=== PATIENT | female | born 1965 | race Caucasian/White ===

== ENCOUNTER 2018-03-06 14:21 | Emergency (ER) | payer BC ==
[2018-03-06] MEDS ORDERED: NS 1,000 ML IV ONE (14:27)
[2018-03-06 14:38] LABS: PLATELET COUNT 219 10^3/uL (150-400)
[2018-03-06 14:41] VITALS: BP 133/87
[2018-03-06] MEDS ORDERED: DIAZEPAM 5 MG/ML 1 ML SYR IVP ONE (15:10)
--- NOTE | 2018-03-06 15:16 | EDPHY ---
H & P Time Seen by Provider: 03/06/18 14:26 HPI/ROS: HPI Fast heart rate. Anxious. Short of breath. 52-year-old female by ambulance from the [facility] area where she was snow showing. She reports that she snow shoes every weekend. She reports that while snow showing today she became unusually short of breath, felt her heart rate running very fast and became anxious because of this. She describes having tingling in her face, hands and feet. She reports that her heart rate usually runs in the 70s. She reports that she thinks it was as high as 150. She reports having some mild associated chest tightness. She does have a family history of coronary artery disease. She reports that her brother who is 50 had a triple bypass recently. She is feeling better now but still feels anxious and still feels that her heart rate is faster than it should be. She does not take any prescription medications. ROS: Constitutional: No fever, no chills. As above. Eyes: No discharge. No changes in vision. ENT: No sore throat. No nasal congestion or rhinorrhea. Respiratory: No cough. As above. Cardiac: No chest pain, as above. Gastrointestinal: No abdominal pain, no vomiting, no diarrhea. Genitourinary: No hematuria. No dysuria or increased frequency with urination. Musculoskeletal: No back pain. No neck pain. No myalgias or arthralgias. Skin: No rashes. Neurological: No headache. No focal weakness or altered sensation. Past medical history: GERD, anxiety. Social history: Nonsmoker. No alcohol. She is currently here by herself. Physical Exam: General Appearance: Alert, she is mildly anxious but not in distress. This patient is responding to questions appropriately and in full sentences. This patient appears well-hydrated and well-nourished. Eyes: Pupils equal and round no pallor or injection. No lid edema, erythema or injection. Respiratory: There are no retractions, lungs are clear to auscultation with good air movement bilaterally. Cardiovascular: Regular rate and rhythm. Tachycardia. No murmur appreciated. Gastrointestinal: Abdomen is soft and nontender, no masses, bowel sounds normal. No focal tenderness at McBurney's point. No Kohli sign. Neurological: Motor sensory function is grossly intact. Cranial nerves are normal. Gait is normal. Skin: Warm and dry, no rashes. Musculoskeletal: Neck is supple and nontender. Extremities are symmetrical. All joints range without pain or impingement. Psychiatric: No agitation. No depression. Database: EKG: EKG time is 2:33 p.m.; EKG shows a narrow complex sinus tachycardia with a ventricular rate of 110. The CO, QRS, QT intervals are within normal limits. There are no ST-T wave changes indicative of ischemic or injury pattern. No evidence of right heart strain. Interpreted by me. Imaging: Chest x-ray PA and lateral; the cardiac mediastinal silhouette is unremarkable. No evidence of infiltrate or pneumothorax. Findings consistent with bronchitis are seen. No other acute cardiopulmonary disease process noted. Interpreted by me. Procedures: Emergency department course: Triage vitals were reviewed. She is borderline tachycardic, vital signs are otherwise normal. She is afebrile. An IV was placed per EMS. On arrival she was started on IV normal saline with 1 L to be given over the next 1-2 hours. She will be given 5 mg of IV Valium for anxiety. EKG obtained and reviewed by myself. 4:00 p.m., the patient was re-evaluated, she is resting comfortably at this time. She is feeling better. I discussed the results of her emergency department workup with her in detail. Vital signs currently blood pressure 133/ 87. residential monitor shows a narrow complex regular sinus rhythm with ventricular rate of 95. Pulse oximetry on room air is 95%. She is requesting discharge. At this time she feels comfortable going home. I feel this is reasonable. She can easily return to the emergency department if necessary. Her friends are on the way to the emergency department now to pick her up. I did offer her further observation in the emergency department she declines. Return to emergency department precautions have been reviewed with her. All of her questions were answered. She was discharged from the emergency department in good condition with her friends. Differential Diagnosis: The differential diagnosis on this patient includes but is not limited to anxiety reaction. SVT, other arrhythmia, pulmonary embolism, acute coronary syndrome unlikely. This represents a partial list of diagnoses considered. These considerations are based on history, physical exam, past history, reassessment and diagnostic testing. Smoking Status: Former smoker Constitutional: Initial Vital Signs Respiratory Rate 20 /26/19 14:35 O2 Delivery Mode Room Air Allergies/Adverse Reactions: shellfish derived Allergy (Intermediate, Verified 03/06/18 14:38) avocado Allergy (Mild, Verified 03/06/18 14:38) Rash Medical Decision Making - Diagnostics Imaging Results: Imaging Impressions Chest X-Ray 03/06/18 15:10 Impression: Prominence of perihilar interstitial markings and peribronchial cuffing. Findings are nonspecific but can be seen with bronchitis, reactive airway disease, or viral process. - Data Points Laboratory Results: Laboratory Results 03/06/18 14:30 03/06/18 14:30 03/06/18 03/06/18 03/06/18 15:16 14:30 14:30 WBC RBC Hgb Hct MCV MCH MCHC RDW Plt Count MPV Neut % (Auto) Lymph % (Auto) [place] % (Auto) Eos % (Auto) Baso % (Auto) Nucleat RBC Rel Count Absolute Neuts (auto) Absolute Lymphs (auto) Absolute Monos (auto) Absolute Eos (auto) Absolute Basos (auto) Absolute Nucleated RBC Immature Gran % Immature Gran # D-Dimer 0.42 ug/mLFEU ug/mLFEU (0.00-0.50) Sodium Potassium Chloride Carbon Dioxide Anion Gap BUN Creatinine Estimated GFR Glucose Calcium POC Troponin I 0.00 ng/mL ng/mL (0.00-0.08) NT-Pro-B Natriuret Pep 53 pg/mL pg/mL (0-125) 03/06/18 03/06/18 14:30 14:30 WBC 6.81 10^3/uL 10^3/uL (3.80-9.50) RBC 5.21 10^6/uL 10^6/uL (4.18-5.33) Hgb 15.9 g/dL g/dL (12.6-16.3) Hct 45.4 % % (38.0-47.0) MCV 87.1 fL fL (81.5-99.8) MCH 30.5 pg pg (27.9-34.1) MCHC 35.0 g/dL g/dL (32.4-36.7) RDW 12.7 % % (11.5-15.2) Plt Count 219 10^3/uL 10^3/uL (150-400) MPV 9.4 fL fL (8.7-11.7) Neut % (Auto) 70.8 % % (39.3-74.2) Lymph % (Auto) 23.2 % % (15.0-45.0) [place] % (Auto) 4.8 % % (4.5-13.0) Eos % (Auto) 0.3 % L % (0.6-7.6) Baso % (Auto) 0.6 % % (0.3-1.7) Nucleat RBC Rel Count 0.0 % % (0.0-0.2) Absolute Neuts (auto) 4.82 10^3/uL 10^3/uL (1.70-6.50) Absolute Lymphs (auto) 1.58 10^3/uL 10^3/uL (1.00-3.00) Absolute Monos (auto) 0.33 10^3/uL 10^3/uL (0.30-0.80) Absolute Eos (auto) 0.02 10^3/uL L 10^3/uL (0.03-0.40) Absolute Basos (auto) 0.04 10^3/uL 10^3/uL (0.02-0.10) Absolute Nucleated RBC 0.00 10^3/uL 10^3/uL (0-0.01) Immature Gran % 0.3 % % (0.0-1.1) Immature Gran # 0.02 10^3/uL 10^3/uL (0.00-0.10) D-Dimer Sodium 136 mEq/L mEq/L (135-145) Potassium 3.5 mEq/L mEq/L (3.5-5.2) Chloride 106 mEq/L mEq/L (97-110) Carbon Dioxide 18 mEq/l L mEq/l (22-31) Anion Gap 12 mEq/L mEq/L (6-14) BUN 19 mg/dL mg/dL (7-23) Creatinine 0.8 mg/dL mg/dL (0.6-1.0) Estimated GFR > 60 Glucose 147 mg/dL H mg/dL (70-100) Calcium 10.0 mg/dL mg/dL (8.5-10.4) POC Troponin I NT-Pro-B Natriuret Pep Medications Given: Discontinued Medications Diazepam (Valium) 5 mg IVP EDNOW ONE Stop: 03/06/18 15:11 Last Admin: 03/06/18 15:22 Dose: 5 mg Sodium Chloride (Ns) 1,000 mls @ 0 mls/hr IV EDNOW ONE; Wide Open PRN Reason: Protocol Stop: 03/06/18 14:28 Last Admin: 03/06/18 14:47 Dose: 1,000 mls Point of Care Test Results: Chemistry 03/06/18 15:16 POC Troponin I 0.00 ng/mL ng/mL (0.00-0.08) Departure - Departure Disposition: Home, Routine, Self-Care Clinical Impression: Anxiety reaction, Tachycardia Condition: Good Instructions: Anxiety (ED), Tachycardia (ED) Additional Instructions: Read and follow provided instructions. Follow-up with your primary care physician on Thursday or Thursday of this week for re-evaluation as discussed. Keep yourself well hydrated. Continue to orally hydrate this afternoon and this evening. No strenuous activity until you have been cleared by her primary care physician. Return to the emergency department immediately for worsening symptoms or other serious concerns. Referrals: Patient,NotPresent [Unknown] - As per Instructions
--- NOTE | 2018-03-06 21:01 | CPEKG ---
Test Reason : OPEN Blood Pressure : / mmHG Vent. Rate : 110 BPM Atrial Rate : 110 BPM P-R Int : 174 ms QRS Dur : 090 ms QT Int : 353 ms P-R-T Axes : 039 006 004 degrees QTc Int : 478 ms Sinus tachycardia Borderline T abnormalities, anterior leads Confirmed by Reva iBngham ([id number] on 03/06/2018 9:00:54 PM Referred By: Reva Bingham Confirmed By:Reva Bingham
== END 2018-03-06 16:45 | disposition home or self-care (01) ==
DX: R06.02 Shortness of breath (principal); F41.9 Anxiety disorder, unspecified; R00.0 Tachycardia, unspecified; E86.9 Volume depletion, unspecified
CPT/HCPCS: 84484-ER; J3360